=== PATIENT | male | born 1985 | race African-American/Black ===

== ENCOUNTER 2016-06-14 10:30 | Emergency (ER) | payer MEDICAID, OTHER ==
[~2016-06-14] VITALS: Ht 200.7 cm; Wt 152.0 kg
[~2016-06-14 10:30] MED LIST: ALLO100T PO; COLCPOW2 PO; LISI10TA6 PO
[2016-06-14 10:45] VITALS: BP 157/90
[2016-06-14 11:34] LABS: Basophils # (auto) 0.2 uL; Basophils % (auto) 2.8 % (0.0-2.0); Eosinophils # (auto) 0.2 uL; Eosinophils % (auto) 2.1 % (0.0-7.0); Hematocrit 47.7 % (41.0-53.0); Hemoglobin 15.4 g/dL (13.5-17.5); Lymphocytes # (auto) 2.5 uL; Lymphocytes % (auto) 33.6 % (10.0-50.0); Mean Corpuscular Hemoglobin 29.3 pg (28.0-32.0); Mean Corpuscular Hgb Conc. 32.2 g/dL (32.0-36.0); Mean Corpuscular Volume 91.1 fL (80.0-100.0); Mean Platelet Volume 8.3 fL (7.4-10.4); Monocytes # (auto) 0.5 uL; Monocytes % (auto) 7.2 % (0.0-12.0); Neutrophils % (auto) 54.3 % (37.0-80.0); Platelet Count (auto) 336 10^3/uL (140-450); Red Cell Distribution Width 13.2 % (11.6-16.0); White Blood Cell 7.4 10^3/uL (4.4-10.8)
[2016-06-14 11:58] LABS: BUN/Creatinine Ratio 7.2; Calcium 9.1 mg/dL (8.5-10.1); Magnesium 2.1 mg/dL (1.6-2.6); Potassium 3.8 mmol/L (3.5-5.1)
[2016-06-14 12:01] LABS: Bilirubin, Total 1.1 mg/dL (0.2-1.0); Total Protein 7.3 g/dL (6.4-8.2)
== END 2016-06-14 13:09 | disposition left against medical advice (07) ==
LOC: ER 10:30
DX: R07.9 Chest pain, unspecified (principal); R42 Dizziness and giddiness; Z53.21 Procedure and treatment not carried out due to patient leaving prior to being seen by health care provider
CPT/HCPCS: 36415; 71020; 80053; 83735; 84484; 85025; 85049; 93005